=== PATIENT | female | born 2000 | race Two or more races ===

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

== ENCOUNTER 2023-12-15 23:42 | Emergency (ER) | payer MEDICAID ==
[~2023-12-15] VITALS: Ht 162.6 cm; Wt 78.8 kg
[2023-12-15 23:56] VITALS: BP 147/88; PULSE 96; RESP 18; TEMP 98.5; O2SAT 98
--- NOTE | 2023-12-16 00:31 | ED.PDOC ---
Epistaxis- HPI HPI Comments 22-year-old female presents to ER with complaints of nosebleed x1 hour. Patient with no past medical history states that she started experiencing a nosebleed from left nasal flare 1 hour prior to arrival to ER. Patient presents to ER with mild bleeding noted from left nasal flare, ambulatory, with steady gait, in no distress. Denies any pain. Denies headache, skin changes, nose picking, use of NSAIDs, trauma, nausea/vomiting, dizziness or any further symptoms/complaints Chief Complaint: Nose Bleed Time Seen by MD: 00:04 Primary Care Provider: MUSTAPHA Reviewed Notes: Nurses Notes, Medications, Allergies Allergies: Coded Allergies: NO KNOWN ALLERGIES (Unverified , 02/06/19) Information Source: Patient Mode of Arrival: Ambulatory Past Medical History PAST MEDICAL HISTORY: Denies Surgical History: Denies all surgeries HOIST WORKER History: Denies all HOIST WORKER Hx Family History Family History: Unknown, Family hx of HTN Social History Smoker: Non-Smoker Alcohol: Denies ETOH Use Drugs: Denies Drug Use Lives In: Home Constitutional: denies: chills, diaphoresis, fatigue, fever, malaise, sweats, weakness, others EENTM: reports: others (As stated in HPI) Respiratory: denies: cough, hemoptysis, orthopnea, SOB at rest, shortness of breath, SOB with excertion, stridor, wheezing, others Cardiovascular: denies: chest pain, dizzy spells, diaphoresis, Dyspnea on exertion, edema, irregular heart beat, left arm pain, lightheadedness, palpitations, PND, syncope, others Gastrointestinal: denies: abdomen distended, abdominal pain, blood streaked bowels, constipated, diarrhea, dysphagia, difficulty swallowing, hematemesis, melena, nausea, poor appetite, poor fluid intake, rectal bleeding, rectal pain, vomiting, others Genitourinary: denies: abnormal vagina bleeding, burning, dyspareunia, dysuria, flank pain, frequency, hematuria, incontinence, pain, , vagina discharge, urgency, others Neurological: denies: dizziness, fainting, headache, left sided numbness, left sided weakness, numbness, paresthesia, pre-existing deficit, right sided numbness, right sided weakness, seizure, speech problems, tingling, tremors, weakness, others Musculoskeletal: denies: back pain, gout, joint pain, joint swelling, muscle pain, muscle stiffness, neck pain, others Integumetry: denies: bruises, change in color, change in hair/nails, dryness, laceration, lesions, lumps, rash, wounds, others Allergic/Immunocompromised: denies: Difficulty Healing, Frequent Infections, Hives, Itching, others Hematologic/Lymphatic: reports: others (As stated in HPI) Endocrine: denies: excessive hunger, excessive sweating, excessive thirst, excessive urination, flushing, intolerance to cold, intolerance to heat, unexplained weight gain, unexplained weight loss, others Psychiatric: denies: anxiety, bipolar disorder, depression, hopeless, panic disorder, schizophrenia, sleepless, suicidal, others Physical Exam General Appearance: No Apparent Distress HEENT: PERRL/EOMI, Pharynx Normal, TMs Normal, Other (Mild anterior eipstaxis noted from left nasal flare. No septal hematoma noted bilaterally. No skin changes noted) Neck: Full Range of Motion, Non-Tender, Normal Respiratory: Chest Non-Tender, Lungs Clear, No Accessory Muscle Use, No Respiratory Distress, Normal Breath Sounds Cardiovascular: No Murmur, No Gallop, Regular Rate/Rhythm Breast Exam: Deferred Gastrointestinal: NOT DONE Genitalia: Deferred Pelvic: Deferred Rectal: Deferred Extremities: Normal capillary refill, Normal range of motion Neurologic: Alert, building official II-XII nml as Tested, No Motor Deficits, Normal Affect, Normal Mood, No Sensory Deficits Cerebellar Function: Normal Reflexes: Normal Skin: Dry, Normal Color, Warm Lymphatic: No Adenopathy Was a procedure done? Was a procedure done?: No Sedation Sedation?: No Differential Diagnosis (NSB) Differential Diagnosis: Posterior Nasal Bleed, Foreign Body, Hypertension X-Ray, Labs, Meds, VS Vital Signs Date Time Temp Pulse Resp B/P (MAP) Pulse Ox O2 Delivery O2 Flow Rate FiO2 12/16/23 00:42 Room Air 12/15/23 23:56 98.5 96 18 147/88 (107) 98 Afrin ordered, patient educated on proper use/dosage Patient asymptomatic on any nosebleed for at least 1 hour prior to arrival to ER Advised to drink plenty of fluids Advised to follow up with PCP in 1-2 days Patient verbalized understanding and agreeable with current plan of care Advised to return to ER immediately if symptoms worsen Time of 1ST Reevaluation: 00:02 Reevaluation 1ST: N/A Time of 2ND Reevaluation: 01:16 Reevaluation 2ND: Improved Patient Education/Counseling: Diagnosis, Treatment, Prognosis, Need For Follow Up Family Education/Counseling: No Family Present Departure 1 Departure Time of Disposition: 01:18 Impression: Primary Impression: Anterior epistaxis Disposition: 01 HOME / SELF CARE / HOMELESS Condition: Stable Discharged With: Self Critical Care Note Critical Care Time?: No Stability Stability form required: No Heart Score Heart Score: Heart Score Response (Comments) Value History N/A 0 EKG N/A 0 Age N/A 0 Risk Factors N/A 0 Troponin N/A 0 Total 0 MARQUES GONZALES Dec 16, 2023 00:31
[2023-12-16] MEDS: OXYMETAZOLINE HCL 0.05 % NASAL SPRAY 15ML EACHNOSTRI ONE (00:34)
== END 2023-12-16 01:19 | disposition home or self-care (01) ==
LOC: ER 23:42
DX: R04.0 Epistaxis (principal)